=== PATIENT | male | born 1980 | race Caucasian/White ===

== ENCOUNTER 2024-02-18 16:05 | Outpatient (CLI) | payer SELFPAY | END 2024-02-18 16:06 | disposition home or self-care (01) | LOC: CT 16:05 | PROVIDERS: ATTEND Family Medicine | DX: G44.53 Primary thunderclap headache (principal) | CPT/HCPCS: 70450 ==

== ENCOUNTER 2024-09-28 10:24 | Outpatient (CLI) | payer OTHER | END 2024-09-28 10:25 | disposition home or self-care (01) | LOC: SCSMRI 10:24 | PROVIDERS: ATTEND Psychiatry & Neurology Neurology | DX: G44.85 Primary stabbing headache (principal) | CPT/HCPCS: 70544; 70553; 71045; 76376 ==